=== PATIENT | female | born 1955 | race Caucasian/White ===

== ENCOUNTER 2025-03-26 17:23 | Inpatient (IN) | payer BC, MEDICAID ==
[~2025-03-26] VITALS: Ht 160 cm; Wt 100.7 kg
[2025-03-26 18:33] LABS: BASOPHILS % (AUTO) 0.4 % (0-1); EOSINOPHILS # (AUTO) 0.1 X10'3 (0-0.9); EOSINOPHILS % (AUTO) 0.9 % (0-6); HEMATOCRIT 28.5 % (35.0-45.0); HEMOGLOBIN 9.4 g/dl (12.0-16.0); LYMPHOCYTES # (AUTO) 1.6 X10'3 (1.1-4.8); LYMPHOCYTES % (AUTO) 13.3 % (21-51); MEAN CORPUSCULAR HEMOGLOBIN 25.5 PG (27.0-31.0); MEAN CORPUSCULAR HGB CONC 32.9 g/dL (33.0-36.5); MEAN CORPUSCULAR VOLUME 77.6 FL (78-98); MEAN PLATELET VOLUME 7.1 FL (7.4-10.4); MONOCYTES # (AUTO) 0.7 X10'3 (0-0.9); MONOCYTES % (AUTO) 6.1 % (2-12); NEUTROPHILS # (AUTO) 9.4 X10'3 (1.8-7.7); NEUTROPHILS % (AUTO) 79.3 % (42-75); PLATELET COUNT 410 X10'3 (140-440); RED BLOOD COUNT 3.67 X10'6 (4.20-5.60); RED CELL DISTRIBUTION WIDTH 16.1 % (11.5-14.5); WHITE BLOOD COUNT 11.8 X10'3 (4.5-11.0)
[2025-03-26 18:45] LABS: ALANINE AMINOTRANSFERASE 18 U/L (12-78); ALBUMIN 3.5 G/DL (3.4-5.0); ALKALINE PHOSPHATASE 83 IU/L (46-116); ANION GAP 9 (8-16); ASPARTATE AMINO TRANSFERASE 11 U/L (10-37); BILIRUBIN,TOTAL 0.3 MG/DL (0.1-1.0); BLOOD UREA NITROGEN 11 MG/DL (7-18); BUN/CREATININE RATIO 11.1 (10.0-20.0); CALCIUM 8.7 MG/DL (8.5-10.1); CHLORIDE 89 MMOL/L (99-107); CREATININE 0.99 MG/DL (0.40-0.90); GLUCOSE 92 MG/DL (70-104); POTASSIUM 4.1 MMOL/L (3.5-5.1); SODIUM 127 MMOL/L (135-145); TOTAL CARBON DIOXIDE 28.9 MMOL/L (24-32); TOTAL PROTEIN 7.1 G/DL (6.4-8.2); eCRCL 45 ML/MIN; eGFR 56 ML/MIN
--- NOTE | 2025-03-26 20:12 | Physician Documentation ---
History of Present Illness ~ Chief Complaint: Dizziness Stated Complaint: DIZZINESS Time Seen by MD: 20:03 HPI Patient is seen today with complaints of vertigo for the last couple of days. Patient admits to history of hyponatremia. Patient states she had vertigo two weeks ago also and had a ground level fall and bruised her hip. Patient currently denies any chest pain or shortness of breath or abdominal pain. Patient denies any palpitations and denies any nausea, vomiting, diarrhea. Patient has no other concern or complaint at this time. Medication Reconciliation Allergies: Coded Allergies: Penicillins (Verified Allergy, 04/24/11) Review of Systems Constitutional: Denies: chills, fever, weakness Eyes: Denies: pain, blurred vision ENT: Denies: ear pain, nose pain, throat pain, mouth pain Respiratory: Denies: cough, shortness of breath Cardiovascular: Denies: chest pain, palpitations Gastrointestinal: Denies: abdominal pain, nausea, vomiting Genitourinary: Denies: burning, dysuria Female Genitalia: Denies: vaginal discharge, pelvic pain Neurological: Denies: headache, dizziness Musculoskeletal: Denies: pain, swelling Integumentary: Denies: rash, lesions Allergic/Immunologic: Denies: hives, itching Hematologic/Lymphatic: Denies: no symptoms reported Psychiatric: Denies: depression, anxiety Physical Exam Vital Signs: Temperature: 99.0, Source: Oral, Heart Rate: 88, Respiratory Rate: 16, BP: 158/65, Pulse Oximetry: 96, Weight: 100.700 Oxygen Flow Rate: 0 Physical Exam General: Awake and Alert, no acute distress. HEENT: Conjunctiva pink, Sclera clear, Mucus Membranes moist. Neck: Supple without masses and tenderness. Resp: Unlabored. Lungs clear to auscultation bilaterally. Heart: Regular Rate and rhythm, normal S1 and S2 without murmur, rub or gallop. Abdomen: Soft and non tender no organomegaly Extremities: No cyanosis,clubbing or edema. Skin: Warm and Dry. Progress Results/Orders Results/Orders Orders - GIOVANNI PELAYO PAC Saline Lock (03/26/25 ) Page Hospitalist (03/26/25 21:42) Fill Out Med Reconciliation (03/26/25 21:42) Completed Orders - GIOVANNI PELAYO PAC Normal Saline 1000ml (Sodium Chloride 10 (03/26/25 20:10) Meclizine Tablets (Antivert Tablet) (03/26/25 20:10) BMP (03/26/25 21:40) Medications Received in ER Medications (Trade) Dose Ordered Sig/Mayi Route PRN Reason Start Time Stop Time Status Last Admin Dose Admin Sodium Chloride 1,000 ml @ 1,000 mls/hr ONCE STAT IV 03/26/25 20:10 03/26/25 21:09 DC 03/26/25 20:40 1,000 MLS/HR (Antivert tablet) 25 mg ONCE STAT PO 03/26/25 20:10 03/26/25 20:23 DC 03/26/25 20:30 25 MG Vital Signs 03/26/25 03/26/25 03/26/25 17:29 20:19 20:19 Temp 99.0 Pulse 88 69 Resp 16 13 13 B/P (MAP) 158/65 137/68 (91) Pulse Ox 96 100 O2 Flow Rate 0 0 Laboratory Tests Test 03/26/25 17:55 03/26/25 21:50 White Blood Count 11.8 H Red Blood Count 3.67 L Hemoglobin 9.4 L Hematocrit 28.5 L Mean Corpuscular Volume 77.6 L Mean Corpuscular Hemoglobin 25.5 L Mean Corpuscular Hemoglobin Concent 32.9 L Red Cell Distribution Width 16.1 H Platelet Count 410 Mean Platelet Volume 7.1 L Neutrophils (%) (Auto) 79.3 H Lymphocytes (%) (Auto) 13.3 L Monocytes (%) (Auto) 6.1 Eosinophils (%) (Auto) 0.9 Basophils (%) (Auto) 0.4 Neutrophils # (Auto) 9.4 H Lymphocytes # (Auto) 1.6 Monocytes # (Auto) 0.7 Eosinophils # (Auto) 0.1 Basophils # (Auto) 0.0 CBC Comment Sodium Level 127 L 129 L Potassium Level 4.1 3.9 Chloride Level 89 L 91 L Carbon Dioxide Level 28.9 29.6 Anion Gap 9 8 Blood Urea Nitrogen 11 11 Creatinine 0.99 H 0.93 H Estimated GFR/1.73 m2 56 60 BUN/Creatinine Ratio 11.1 11.8 Glucose Level 92 98 Calcium Level 8.7 7.9 L Total Bilirubin 0.3 Aspartate Amino Transf (AST/SGOT) 11 Alanine Aminotransferase (ALT/SGPT) 18 Alkaline Phosphatase 83 Total Protein 7.1 Albumin 3.5 3.0 L Globulin 3.6 Albumin/Globulin Ratio 1.0 L Chemistry Comments Medical Decision Making Findings Patient is seen today with complaints of vertigo for the last couple of days. Patient admits to history of hyponatremia. Patient states she had vertigo two weeks ago also and had a ground level fall and bruised her hip. Patient currently denies any chest pain or shortness of breath or abdominal pain. Patient denies any palpitations and denies any nausea, vomiting, diarrhea. Patient has no other concern or complaint at this time. Patient's labs did show hyponatremia with sodium at 127. Hospitalist was consulted for further eval and treatment of hyponatremia and dizziness. [facility] [place] Departure Disposition: 09 ADMITTED INPATIENT Admitted to Inpatient Unit: to hospitalist Admission Level of Care: Med/Surg Impression: Primary Impression: Hyponatremia Condition: Stable Additional Instructions: Patient's labs did show hyponatremia with sodium at 127. Hospitalist was consulted for further eval and treatment of hyponatremia and dizziness. Patient will be admitted to the [facility]. Referrals: NO PRIMARY CARE PROVIDER (PCP) Signature Scribe Signature: No scribe Attestation: No scribe GIOVANNI PELAYO March 26, 2025 20:12
[2025-03-26] MEDS: meclizine 12.5mg tablet PO STA (20:30)
[2025-03-26] MEDS: normal saline 1000ml 1,000 ML IV STA (20:40)
[2025-03-26 22:06] LABS: ANION GAP 8 (8-16); BLOOD UREA NITROGEN 11 MG/DL (7-18); BUN/CREATININE RATIO 11.8 (10.0-20.0); CALCIUM 7.9 MG/DL (8.5-10.1); CHLORIDE 91 MMOL/L (99-107); CREATININE 0.93 MG/DL (0.40-0.90); GLUCOSE 98 MG/DL (70-104); POTASSIUM 3.9 MMOL/L (3.5-5.1); SODIUM 129 MMOL/L (135-145); TOTAL CARBON DIOXIDE 29.6 MMOL/L (24-32); eCRCL 48 ML/MIN; eGFR 60 ML/MIN
[2025-03-26] MEDS ORDERED: acetaminophen 325mg tablet PO PRN ×2 (23:10)
[2025-03-26] MEDS ORDERED: potassium Cl 20 mEq SR tablet PO PRN ×2 (23:10)
[2025-03-26] MEDS ORDERED: potassium Cl 40MEQ/1/2NS 520ml 520 ML IV PRN (23:10)
[2025-03-26] MEDS ORDERED: magnesium hydroxide 30ml (MOM) UD suspension PO PRN (23:10)
[2025-03-26] MEDS ORDERED: magnesium sulf-water 4G/100mL 100 ML IV PRN (23:10)
[2025-03-26] MEDS ORDERED: magnesium sulf-water 2g/50mL 50 ML IV PRN (23:10)
[2025-03-26] MEDS ORDERED: mag hydrox/Alum hydrox/simeth 30ml oral suspension PO PRN (23:10)
[2025-03-26] MEDS ORDERED: magnesium Cl slow-release 64mg tablet PO PRN (23:10)
[2025-03-26 23:31] LABS: BILIRUBIN,URINE NEGATIVE (Neg); CLARITY,URINE CLEAR (Clear); COLOR,URINE YELLOW (Yellow); GLUCOSE, URINE 250 mg/dl (Neg); KETONES,URINE NEGATIVE (Neg); LEUKOCYTE ESTERASE ,URINE SMALL (Neg); NITRITES, URINE NEGATIVE (Neg); OCCULT BLOOD,URINE NEGATIVE (Neg); PROTEIN,URINE NEGATIVE (Neg)
[2025-03-26 23:35] LABS: HEMOGLOBIN A1C 5.6 % (4.5-6.2)
--- NOTE | 2025-03-26 23:35 | RADIOLOGY REPORT ---
CHEST RADIOGRAPH Indication: shortness of breath Technique: Single frontal view of the chest was obtained COMPARISON: None FINDINGS: Lines and Tubes: None Lungs: Clear Pleura: No effusion. No pneumothorax. Cardiomediastinal contours: Unremarkable Bones: Unremarkable IMPRESSION: 1. No acute disease.
[2025-03-26 23:39] LABS: UA COLLECTION TYPE URINAL
[2025-03-26] MEDS: PERFLUTREN PROTEIN-A MICROSPHR (Optison) 0.22 MG/ML 3ML VIAL IV ONE (23:39)
[2025-03-26 23:40] LABS: PHOSPHORUS 4.2 MG/DL (2.3-4.5); PRO BRAIN NATRIURETIC PEPTIDE 125 PG/ML (0-125)
[2025-03-26 23:46] LABS: BACTERIA,URINE 4+ /HPF (Neg); RBC,URINE NONE SEEN /HPF (0-2); SQUAMOUS EPITHELIAL CELL,UR FEW /LPF (FEW)
[2025-03-26 23:56] LABS: PROTHROMBIN TIME 10.5 SECONDS (9.0-12.0)
[2025-03-26] MEDS ORDERED: PRED5TAB PO (23:56)
[2025-03-26] MEDS ORDERED: MELO-100 PO (23:56)
[2025-03-26] MEDS ORDERED: SIMV-42 PO (23:56)
[2025-03-26] MEDS ORDERED: BUSP10TA11 PO (23:56)
[2025-03-26] MEDS ORDERED: ZOLP5TAB8 PO (23:56)
[2025-03-26] MEDS ORDERED: FLUT1BLS8 INH (23:56)
[2025-03-26] MEDS ORDERED: LOPE2CAP14 PO (23:56)
[2025-03-26] MEDS ORDERED: LEVO75CA6 PO (23:56)
[2025-03-26] MEDS ORDERED: BENZ-38 PO (23:56)
[2025-03-26] MEDS ORDERED: HYDR25TA5 PO (23:56)
[2025-03-26] MEDS ORDERED: ONDA-245 PO (23:56)
[2025-03-26] MEDS ORDERED: ALB0.5UD NEB (23:56)
[2025-03-26] MEDS ORDERED: TIRZ2.5P (23:56)
[2025-03-26] MEDS ORDERED: INSU100I5 SQ (23:56)
[2025-03-26] MEDS ORDERED: BRIM5DRO6 EACHEYE (23:56)
[2025-03-26] MEDS ORDERED: ONDA-243 PO (23:56)
[2025-03-26] MEDS ORDERED: PANT20TA18 PO (23:56)
[2025-03-26] MEDS ORDERED: GABA-530 PO (23:56)
[2025-03-26] MEDS ORDERED: METH-798 PO (23:56)
[2025-03-26] MEDS ORDERED: LEVO-65 PO (23:56)
[2025-03-26] MEDS ORDERED: HYDR-3965 PO (23:56)
[2025-03-26] MEDS ORDERED: CETI10TA14 PO (23:56)
[2025-03-26] MEDS ORDERED: EMPA25TA PO (23:56)
[2025-03-26] MEDS ORDERED: AMLO5TAB PO (23:56)
[2025-03-26] MEDS ORDERED: DIVA-76 PO (23:56)
[2025-03-27] VITALS (8 sets, daily range): BP systolic 122–175; BP diastolic 43–77; PULSE 64–81; RESP 15–19; TEMP 96.8–97.9; O2SAT 95–99
--- NOTE | 2025-03-27 02:55 | HISTORY AND PHYSICAL-Residence ---
History & Physical Providers to CC Resident Creating Document: YADIRA BRAN, RES ~ History of Present Illness Reason for Admit\Complaint: Hyponatremia History of Present Illness The patient is a 69-year-old female with past medical history of renal artery stenosis, COPD, asthma, hypertension, hypothyroidism, presented to the ED after she was asked by her family service worker in [place]. The patient visited her family service worker on Saturday, underwent labs and got results today. They were concerned about her low sodium and hemoglobin which is why she presented to the ER. The patient complains of dizziness and nausea since last two days. She has also been vomiting multiple times. Denies fevers, shortness of breath, chest pain, tightness, palpitations, abdominal pain, constipation, diarrhea, burning micturition. She has been using Mounjaro every week since last four weeks and she lost about 7 lb of weight. She reported that she has a history of falling. No prodromes. Patient uses BiPAP at night for COPD. Allergies: Coded Allergies: Penicillins (Verified Allergy, 04/24/11) Home Medications Home Medications Active Reported Ambien* (Zolpidem Tartrate) 5 Mg Tablet 1 Tab PO HSPRN PRN 30 Days Zocor* (Simvastatin) 20 Mg Tablet 2 Tab PO HS Prednisone* (Prednisone) 5 Mg Tablet 4 Tab PO DAILY Protonix (Pantoprazole Sodium) 20 Mg Tablet.dr 1 Tab PO DAILY 30 Days Ondansetron Odt (Ondansetron HCl) 8 Mg Tab.rapdis 1 Tab PO Q8H 2 Days Ondansetron Odt (Ondansetron HCl) 4 Mg Tab.rapdis 1 Tab PO Q6H PRN PRN 4 Days Methocarbamol 750 Mg Tablet 1 Tab PO Q8H 30 Days Meloxicam* (Meloxicam) 7.5 Mg Tablet 1 Tab PO DAILY 30 Days Levothyroxine (Levothyroxine Sodium) 75 Mcg Capsule 1 Tab PO DAILY 30 Days Levofloxacin 500 Mg Tablet 1 Tab PO DAILY 10 Days Jardiance (Empagliflozin) 25 Mg Tablet 1 Tab PO DAILY 30 Days [place] 5/325 MG (Acetaminophen/Hydrocodone Bitart) 5 Mg/325 Mg Tablet 1 Tab PO Q8H PRN Hydrochlorothiazide 25 Mg Tab 1 Tab PO DAILY 30 Days Humalog Mix 75-25 Kwikpen (Insulin Npl/Insulin Lispro) 100 Unit/Ml (75-25) Insuln.pen 1 Units SQ Gabapentin 100 Mg Capsule 3 Cap PO Q8H 30 Days Advair 500-50 Diskus* (Salmeterol Xinafoate/Fluticasone) 500 Mcg-50 Mcg/Dose Disk.w.dev 1 Puffs INH Q12H [address]* (Divalproex Sodium) 500 Mg Tablet.dr 1 Tab PO Q12H 30 Days Cetirizine HCl 10 Mg Tablet 1 Tab PO DAILY 30 Days Alphagan* (Brimonidine Tartrate) 5 Ml Bottle 1 Drop EACHEYE TID Buspar* (Buspirone HCl) 10 Mg Tablet 1 Tab PO BID Benzonatate* (Benzonatate) 100 Mg Capsule 2 Cap PO TID 5 Days Anti-Diarrheal (Loperamide HCl) 2 Mg Capsule 1 Cap PO Q8H 5 Days Amlodipine Besylate 5 Mg Tablet 1 Tablet PO DAILY Proventil Neb* (Albuterol) 2.5 Mg/0.5 Ml Vial.neb 1 Vial NEB Q6H 30 Days Past Medical History Past Medical History Diabetes mellitus, as reported by the patient COPD Asthma Hypertension Hypothyroidism CKD stage 4, as reported by the patient History of renal artery stenosis Past Surgical History Surgical History Comment Tonsillectomy Ganglion cyst removal Family history: Father-bladder cancer, [place] Mother emphysema Past Social History Social History Comment The patient lives in [place] at home with her boyfriend. Ambulates independently without assistance. Her primary care physician is Dr. Benson in [place]. Patient sees Dr. Ward, family service worker for anemia. Patient had history of renal artery stenosis and CKD and she was seeing Dr. Huang but stopped following. Last seen three years ago. 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 Patient quit smoking 42 years ago. Denies alcohol and illicit drug abuse. ROS ROS Reviewed in full. Negative except for pertinent positives in HPI. Constitutional: Denies: chills, fever, weakness Eyes: Denies: pain, blurred vision ENT: Denies: ear pain, nose pain, throat pain, mouth pain Respiratory: Denies: cough, shortness of breath Cardiovascular: Denies: chest pain, palpitations Gastrointestinal: Denies: abdominal pain, nausea, vomiting Genitourinary: Denies: burning, dysuria Neurological: Denies: headache, dizziness Musculoskeletal: Denies: pain, swelling Integumentary: Denies: rash, lesions Allergic/Immunologic: Denies: hives, itching Hematologic/Lymphatic: Denies: no symptoms reported Psychiatric: Denies: depression, anxiety Exam Vitals: Vital Signs Date Time Temp Pulse Resp B/P (MAP) Pulse Ox O2 Delivery O2 Flow Rate FiO2 03/27/25 01:30 66 03/27/25 01:15 97.8 16 142/49 (80) 95 Room Air 03/26/25 23:40 0 General: Elderly female, alert and oriented, not in acute distress Head: Normocephalic with an atraumatic Eyes: Pupils- 3mm, reacting to light, conjunctiva- anicteric Nose and throat: No polyps, septum- normal, no mucosal ulcers Neck: Supple, no lymphadenopathy, no carotid bruit Respiratory: No use of accessory muscles of respiration, Bilateral normal vesiscular breath sounds heard. No wheeze, rhochi or creps Cardiac: S1-S2 heard, rhythm regular Abdomen: non distended, lower abdominal tenderness present, no organomegaly, bowel sounds - heard Extremities: no clubbing, no pedal edema, no deformities, peripheral pulses - 2+ Skin: warm and dry, no rash, no purpura Neuro: No focal deficit, gross cranial nerve exam - normal Diagnostic Data Last Recorded Lab Results: 03/26/25175403/26/[id number] Diagnostic Data: Laboratory Tests Test 03/26/25 23:19 Prothrombin Time 10.5 SECONDS (9.0-12.0) INR International Normalized Ratio 1.0 INR Coagulation Comments Advance Care Planning Advanced Care plannin - 30 Minutes Additional Plan A 69-year-old female with past medical history of hypertension, COPD, asthma, hypothyroidism, presented to the ED with low sodium and hemoglobin levels. She is being admitted to the hospital for further evaluation and management. Plan: Hyponatremia Likely from medications vs GI losses Improving sodium from 127-129. Normal saline 1 L given in the ER. Continue NS at 100 mL/hour. Follow up with urine osmolality, serum osmolality, urine lytes. Hold hydrochlorothiazide. Ondansetron 4 mg q.6 H p.r.n. for vomiting and nausea. Urinary tract infection Urinalysis positive for leukocyte esterase. Follow up with urine cultures. Started the patient on IV Rocephin 1 g daily. Diabetes mellitus HB A1c 5.6. Consider stopping her home insulin. COPD Asthma Continue home inhalers after med rec is done. Hypertension Continue home amlodipine. Hypothyroidism Continue home levothyroxine 75 mcg daily. History of CKD History of renal artery stenosis Patient does not seem to be in kidney failure currently. Continue IV fluids. Hyperlipidemia Continue home statins. Code Status: Full code DVT Prophylaxis: Heparin Analgesia/Sedation: Tylenol Lines/Tubes: PIV Nutrition: Heart healthy diet PT: Ordered Disposition: We will admit the patient into [facility]. Continue sodium monitoring every 4 hours. Yadira Bran MD Internal Medicine Resident PGY-1 I saw and discussed this patient with the resident team and agree with plan of care as documented Date of Service: March 27, 2025 Billing Provider: LEV FLORES MD, SOWMYA MANJARI, RES March 27, 2025 02:54 LEV FLORES MD March 27, 2025 07:58
[2025-03-27] MEDS: CefTRIAXone/D5W-Rocephin 1gm 50 ML IV ONE (03:27)
[2025-03-27] MEDS: normal saline 1000ml 1,000 ML IV SCH (03:28)
[2025-03-27 05:21] LABS: SODIUM,URINE RANDOM 72 MEQ/L; TOTAL PROTEIN,URINE RANDOM < 6.0 MG/DL
[2025-03-27 05:26] LABS: OSMOLALITY UA 242 MOSM/K (50-1400)
[2025-03-27 06:12] LABS: BASOPHILS % (AUTO) 0.6 % (0-1); EOSINOPHILS # (AUTO) 0.1 X10'3 (0-0.9); EOSINOPHILS % (AUTO) 1.8 % (0-6); HEMATOCRIT 25.1 % (35.0-45.0); HEMOGLOBIN 8.6 g/dl (12.0-16.0); LYMPHOCYTES # (AUTO) 1.6 X10'3 (1.1-4.8); LYMPHOCYTES % (AUTO) 19.6 % (21-51); MEAN CORPUSCULAR HEMOGLOBIN 26.6 PG (27.0-31.0); MEAN CORPUSCULAR HGB CONC 34.1 g/dL (33.0-36.5); MEAN CORPUSCULAR VOLUME 77.9 FL (78-98); MEAN PLATELET VOLUME 7.1 FL (7.4-10.4); MONOCYTES # (AUTO) 0.6 X10'3 (0-0.9); MONOCYTES % (AUTO) 7.5 % (2-12); NEUTROPHILS # (AUTO) 5.9 X10'3 (1.8-7.7); NEUTROPHILS % (AUTO) 70.5 % (42-75); PLATELET COUNT 312 X10'3 (140-440); RED BLOOD COUNT 3.22 X10'6 (4.20-5.60); RED CELL DISTRIBUTION WIDTH 16.3 % (11.5-14.5); WHITE BLOOD COUNT 8.3 X10'3 (4.5-11.0)
[2025-03-27 06:57] LABS: ALANINE AMINOTRANSFERASE 15 U/L (12-78); ALBUMIN 2.9 G/DL (3.4-5.0); ALBUMIN/GLOBULIN RATIO 0.9 (1.1-1.5); ALKALINE PHOSPHATASE 73 IU/L (46-116); ANION GAP 9 (8-16); ASPARTATE AMINO TRANSFERASE 13 U/L (10-37); BILIRUBIN,TOTAL 0.1 MG/DL (0.1-1.0); BLOOD UREA NITROGEN 9 MG/DL (7-18); BUN/CREATININE RATIO 10.8 (10.0-20.0); CHLORIDE 92 MMOL/L (99-107); CHOL/HDL RATIO 2.6 (0.00-4.99); CHOLESTEROL 126 MG/DL (0-200); CREATININE 0.83 MG/DL (0.40-0.90); FERRITIN 29 NG/ML (8-252); GLUCOSE 87 MG/DL (70-104); HDL CHOLESTEROL 48 MG/DL (35-60); LDL CHOLESTEROL 63 MG/DL (50-100); MAGNESIUM 1.7 MG/DL (1.5-2.4); POTASSIUM 3.7 MMOL/L (3.5-5.1); SODIUM 130 MMOL/L (135-145); TOTAL CARBON DIOXIDE 29.1 MMOL/L (24-32); TOTAL PROTEIN 6.1 G/DL (6.4-8.2); TRIGLYCERIDES 101 MG/DL (20-135); eCRCL 54 ML/MIN; eGFR 68 ML/MIN
[2025-03-27] MEDS: K and/or MAG REPLACEMENT MC SCH (07:38)
[2025-03-27] MEDS: heparin, porcine 5000 units/ml vial SQ SCH (09:00)
[2025-03-27] MEDS: nystatin 15 GM powder TP SCH (16:40)
[2025-03-27] MEDS: Melatonin 3mg tablet PO PRN (19:59)
[2025-03-27] MEDS: HYDROcodone/acetaminophen 10/325mg tab PO ONE (19:59)
[2025-03-27] MEDS ORDERED: zolpidem 5mg tablet PO PRN (20:40)
--- NOTE | 2025-03-27 20:50 | PROGRESS NOTE ---
Daily Progress Note Providers to CC ~ Antibiotic Timeout Antibiotic Ordered?: Yes Subjective The patient denies dizziness currently- and is awaiting for physical therapy evaluation. Orthostatic vital signs were negative the patient has no acute complaints currently Objective Vital Signs Date Time Temp Pulse Resp B/P (MAP) Pulse Ox O2 Delivery O2 Flow Rate FiO2 03/27/25 18:30 79 03/27/25 18:00 97.7 16 143/77 (99) 98 Room Air 03/26/25 23:40 0 Result Diagram: 03/27/25 0533 03/27/25 1950 Gen. No acute distress alert and oriented 4 Lungs clear to ascultation bilaterally, no wheezes rales or rhonchi appreciated Heart normal sinus rhythm no murmurs rubs or clicks noted Abdomen soft nontender bowel sounds are normoactive Lower extremities no clubbing cyanosis, nor edema appreciated bilaterally Coagulation Studies Laboratory Tests Test 03/26/25 23:19 Prothrombin Time 10.5 SECONDS (9.0-12.0) INR International Normalized Ratio 1.0 INR Coagulation Comments Problem\Assessment\Plan Problems/Diagnosis: (1) Hyponatremia # hyponatremia- Improving with IV fluid resuscitation continue to monitor Stop hydrochlorothiazide # UTI- Urine culture pending Continue IV Rocephin # diabetes mellitus Hemoglobin A1c is 5.6 Hold insulin for now and a hyper and hypoglycemic protocol # hypertension under acceptable control Continue amlodipine # hypothyroidism Continue levothyroxine # chronic kidney disease- Current renal function is normal Monitor daily CMP # microcytic anemia- Daily CBC is ordered Iron studies # DVT prophylaxis SQ heparin Date of Service: March 27, 2025 Billing Provider: LAKISHA AGUDELO DO Common Visit Codes: [id number] INP/OBS CARE(HIGH) LAKISHA AGUDELO DO March 27, 2025 20:50
[2025-03-27] MEDS: brimonidine 0.2% 5 ML ophthalmic drops EACHEYE SCH (21:00)
[2025-03-27] MEDS: simvastatin 20mg tablet PO SCH (22:37)
[2025-03-28] MEDS: gabapentin 100mg capsule PO SCH (00:28)
[2025-03-28 01:19] LABS: BASOPHILS % (AUTO) 0.6 % (0-1); EOSINOPHILS # (AUTO) 0.1 X10'3 (0-0.9); EOSINOPHILS % (AUTO) 1.7 % (0-6); HEMATOCRIT 25.4 % (35.0-45.0); HEMOGLOBIN 8.6 g/dl (12.0-16.0); LYMPHOCYTES # (AUTO) 1.3 X10'3 (1.1-4.8); LYMPHOCYTES % (AUTO) 16.4 % (21-51); MEAN CORPUSCULAR HEMOGLOBIN 26.7 PG (27.0-31.0); MEAN CORPUSCULAR VOLUME 78.8 FL (78-98); MEAN PLATELET VOLUME 6.8 FL (7.4-10.4); MONOCYTES # (AUTO) 0.5 X10'3 (0-0.9); NEUTROPHILS % (AUTO) 75.3 % (42-75); PLATELET COUNT 294 X10'3 (140-440); RED BLOOD COUNT 3.22 X10'6 (4.20-5.60); RED CELL DISTRIBUTION WIDTH 16.2 % (11.5-14.5)
[2025-03-28 01:32] LABS: ALANINE AMINOTRANSFERASE 17 U/L (12-78); ALBUMIN 2.9 G/DL (3.4-5.0); ALBUMIN/GLOBULIN RATIO 0.9 (1.1-1.5); ALKALINE PHOSPHATASE 71 IU/L (46-116); ANION GAP 7 (8-16); ASPARTATE AMINO TRANSFERASE 17 U/L (10-37); BILIRUBIN,TOTAL 0.2 MG/DL (0.1-1.0); BLOOD UREA NITROGEN 11 MG/DL (7-18); CHLORIDE 97 MMOL/L (99-107); CREATININE 0.92 MG/DL (0.40-0.90); GLUCOSE 100 MG/DL (70-104); MAGNESIUM 1.8 MG/DL (1.5-2.4); SODIUM 131 MMOL/L (135-145); TOTAL CARBON DIOXIDE 27.1 MMOL/L (24-32); TOTAL PROTEIN 6.1 G/DL (6.4-8.2); eCRCL 48 ML/MIN; eGFR 61 ML/MIN
[2025-03-28 02:32] LABS: % IRON SATURATION 7 % (11-46); IRON 22 UG/DL (49-151); TOTAL IRON BINDING CAPACITY 335 UG/DL (259-388)
[2025-03-28] MEDS: ondansetron/PF 4mg/2ml inj IV PRN (02:32)
[2025-03-28 05:00] VITALS: BP 137/64; PULSE 66; RESP 16; TEMP 97.2; O2SAT 97
[2025-03-28] MEDS: levoTHYROXINE 75mcg tablet PO SCH (07:00)
[2025-03-28 08:00] VITALS: BP_SYST 137; BP_SYST 146; BP_SYST 165; BP_DIAS 67; BP_DIAS 69; BP_DIAS 81; PULSE 66; PULSE 70; PULSE 76; RESP 16; O2SAT 95
[2025-03-28] MEDS ORDERED: LEVOTHYROXINE SODIUM PO SCH (08:00)
[2025-03-28] MEDS ORDERED: non-formulary drug (Amlodipine Besylate 1 TABLET) PO SCH (08:00)
[2025-03-28] MEDS ORDERED: non-formulary drug (Buspirone Hcl* (Buspar*) 1 TAB) PO SCH (08:00)
[2025-03-28] MEDS: divalproex sodium 500mg tablet.DR PO SCH (08:40)
[2025-03-28] MEDS: EMPAGLIFLOZIN 25 MG TABLET PO SCH (08:40)
[2025-03-28] MEDS: cetirizine 10mg tablet PO SCH (08:40)
[2025-03-28] MEDS: amLODIPine 5mg tablet PO SCH (08:40)
[2025-03-28] MEDS: busPIRone 5mg tablet PO SCH (08:40)
[2025-03-28] MEDS: CefTRIAXone/D5W-Rocephin 1gm 50 ML IV SCH (08:40)
[2025-03-28] MEDS: iron sucrose complex injection 300 MG in normal saline 250ml IV soln 250 ML IV SCH (09:30)
[2025-03-28] MEDS: fludrocortisone acetate 0.1mg tablet PO SCH (09:31)
[2025-03-28 10:00] VITALS: BP 149/59; PULSE 77; RESP 16; TEMP 98; O2SAT 95
[2025-03-28] MEDS: HYDROcodone/acetaminophen 5mg/325mg tablet PO PRN (11:55)
--- NOTE | 2025-03-28 14:30 | CARDIOLOGY REPORT ---
APPROVED REPORT EXAM: Comprehensive 2D, Doppler, and color-flow Echocardiogram. Patient Location: [address] Blood Pressure: 140/66 mmHg Heart Rate: 68 bpm Rhythm: Sinus Rhythm Indications Murmur Dizziness/Vertigo Hyponatremia Line Decorator: Patient could not remember Line Decorator's name Previous echo: 04/25/2011 [facility] EF: 65% 2D Dimensions RVDd 3.9 cm LA Diam3.8 cm RA Minor4.6 cmLVOT Diameter 2.05 (1.8-2.4cm) Ao Asc Diam.3.47 cmIVC 21.83 mm CO 6.4 L/min M-Mode Dimensions RVDd 3.30 (2.1-3.2cm) IVSd 1.17 (0.7-1.1cm) LVDd 5.49 (4.0-5.6cm) Aortic Root 3.62 (2.2-3.7cm) PWd 1.21 (0.7-1.1cm) Aortic Cusp Exc 2.11 (1.5-2.0cm) IVSs 1.87 cm MV EPSS 0.7 (<0.5cm) LVDs 3.66 (2.0-3.8cm) FS (%) 36 % PWs 1.44 cm ESV(Teich) 50.8 ml LVEF(%) 65 (>50%) Biplane 2D LA Volumes LA ESV A4C 34.20 mL/m2 Aortic Valve AoV Peak Garcia. 166.7 cm/s AoV VTI 38.3 cm AO Peak GR. 11.1 mmHg AO Mean GR. 6 mmHg LVOT VTI 25.25 cm LVOT Peak Garcia. 115.7 cm/s SON(VTI)/BSA 2.18 cm2/m2 SON (VTI) 2.18 cm2 AI P 1/2 Time 556 ms Mitral Valve MV E Velocity 83.1 cm/s MV Peak Gr. 3 mmHg MV DECEL TIME 212 ms MV A Velocity 86.4 cm/s MV PHT 72 ms E/A Ratio 1.0 MVA (PHT) 3.06 cm2 MV VMax89.5 cm/s TDI Medial E' P. V 14.23 cm/s E/Medial E' 5.8 Pulmonary Valve RVOT VTI 27.6 cm Tricuspid Valve TR P. Velocity 209 cm/s RAP ESTIMATE 15 mmHg TR Peak Gr. 18 mmHg RVSP 33 mmHg Pulmonary Vein S1 Velocity 58.0 cm/s D2 Velocity 42.5 cm/s PVa Rcflxesy41.2 cm/s PVa [id number] msec LEFT VENTRICLE Normal LV size and function. Mild concentric hypertrophy. Overall LVEF is 65%. RIGHT VENTRICLE Right ventricle is moderately dilated with grossly normal function. Estimated PA systolic pressure is 33 mmHg. ATRIA The left atrium size is normal. Right atrium appears to be moderately dilated. AORTIC VALVE Trileaflet AV appears sclerotic without stenosis. Mild insufficiency. MITRAL VALVE Mild MV annular calcification without stenosis. Trace regurgitation. TRICUSPID VALVE TV appears structurally normal with trace to mild regurgitation. PULMONIC VALVE Normal PV without stenosis, mild physiologic insufficiency. GREAT VESSELS The aortic root is normal in size. The ascending aorta is normal in size. IVC is dilated and collapse s less than 50% with inspiration. PERICARDIUM Trace pericardial effusion without hemodynamic compromise. Prominent epicardial fat pad is present. Other Information Study Quality: Adequate Conclusion Overall LVEF is 65%. Normal LV size and function. Mild concentric hypertrophy. Right ventricle is moderately dilated with grossly normal function. Estimated PA systolic pressure is 33 mmHg. Trileaflet AV appears sclerotic without stenosis. Mild insufficiency. Mild MV annular calcification without stenosis. Trace regurgitation. TV appears structurally normal with trace to mild regurgitation. Normal PV without stenosis, mild physiologic insufficiency. Trace pericardial effusion without hemodynamic compromise. Prominent epicardial fat pad is present.
[2025-03-28 18:00] VITALS: BP 126/63; PULSE 67; RESP 13; TEMP 98.7; O2SAT 93
--- NOTE | 2025-03-28 18:55 | PROGRESS NOTE ---
Daily Progress Note Providers to CC ~ Antibiotic Timeout Antibiotic Ordered?: Yes Subjective The patient had one episode of dizziness today- last evening she had positive orthostatic vital signs with a 24 point drop in systolic blood pressure from sitting to standing the opposite occurred this morning when her orthostatic vital signs were obtained where her systolic blood pressure went up with sitting to standing. Did start the patient's morning on Florinef the patient is also has iron-deficiency with a serum iron level of 22 TIBC normal at 335 and 7% saturation Objective Vital Signs Date Time Temp Pulse Resp B/P (MAP) Pulse Ox O2 Delivery O2 Flow Rate FiO2 03/28/25 11:55 16 03/28/25 10:00 98.0 77 149/59 (89) 95 Room Air 03/27/25 20:00 0.0 Result Diagram: 03/28/2510703/28/25107 Gen. No acute distress alert and oriented 4 Lungs clear to ascultation bilaterally, no wheezes rales or rhonchi appreciated Heart normal sinus rhythm no murmurs rubs or clicks noted Abdomen soft nontender bowel sounds are normoactive Lower extremities no clubbing cyanosis, nor edema appreciated bilaterally Coagulation Studies Laboratory Tests Test 03/26/25 23:19 Prothrombin Time 10.5 SECONDS (9.0-12.0) INR International Normalized Ratio 1.0 INR Coagulation Comments Problem\Assessment\Plan Problems/Diagnosis: (1) Hyponatremia # hyponatremia- Improving with IV fluid resuscitation continue to monitor Stop hydrochlorothiazide Serum sodium remained stable at 130. # orthostatic hypotension- With a 24 point drop in systolic wedge pressure from sitting to standing Florinef started # UTI- Urine culture positive for Gram-negative rods and Gram-positive cocci- awaiting identification and sensitivities Continue IV Rocephin # diabetes mellitus Hemoglobin A1c is 5.6 Hold insulin for now and a hyper and hypoglycemic protocol # hypertension under acceptable control Continue amlodipine # hypothyroidism Continue levothyroxine # chronic kidney disease- Current renal function is normal Monitor daily CMP # iron-deficiency anemia Daily CBC is ordered IV Venofer # DVT prophylaxis SQ heparin Date of Service: March 28, 2025 Billing Provider: LAKISHA AGUDELO DO Common Visit Codes: [id number] INP/OBS CARE(HIGH) LAKISHA AGUDELO DO March 28, 2025 18:55
[2025-03-28 20:00] VITALS: BP_SYST 142; BP_SYST 148; BP_SYST 157; BP_DIAS 52; BP_DIAS 57; BP_DIAS 74; PULSE 78; PULSE 79; PULSE 80; RESP 15; O2SAT 93
[2025-03-28 22:00] VITALS: BP 142/52; PULSE 80; RESP 18; TEMP 98; O2SAT 95
[2025-03-29 05:00] VITALS: BP 124/57; PULSE 65; RESP 16; TEMP 97.2; O2SAT 96
[2025-03-29 06:03] LABS: BASOPHILS % (AUTO) 0.6 % (0-1); EOSINOPHILS # (AUTO) 0.1 X10'3 (0-0.9); EOSINOPHILS % (AUTO) 1.9 % (0-6); HEMATOCRIT 27.2 % (35.0-45.0); HEMOGLOBIN 8.8 g/dl (12.0-16.0); LYMPHOCYTES # (AUTO) 1.4 X10'3 (1.1-4.8); LYMPHOCYTES % (AUTO) 21.2 % (21-51); MEAN CORPUSCULAR HEMOGLOBIN 25.7 PG (27.0-31.0); MEAN CORPUSCULAR HGB CONC 32.3 g/dL (33.0-36.5); MEAN CORPUSCULAR VOLUME 79.5 FL (78-98); MEAN PLATELET VOLUME 7.1 FL (7.4-10.4); MONOCYTES # (AUTO) 0.5 X10'3 (0-0.9); MONOCYTES % (AUTO) 7.4 % (2-12); NEUTROPHILS # (AUTO) 4.6 X10'3 (1.8-7.7); NEUTROPHILS % (AUTO) 68.9 % (42-75); PLATELET COUNT 298 X10'3 (140-440); RED BLOOD COUNT 3.42 X10'6 (4.20-5.60); RED CELL DISTRIBUTION WIDTH 16.4 % (11.5-14.5); WHITE BLOOD COUNT 6.6 X10'3 (4.5-11.0)
[2025-03-29 06:23] LABS: ALANINE AMINOTRANSFERASE 16 U/L (12-78); ALBUMIN 2.7 G/DL (3.4-5.0); ALBUMIN/GLOBULIN RATIO 0.8 (1.1-1.5); ALKALINE PHOSPHATASE 65 IU/L (46-116); ANION GAP 7 (8-16); ASPARTATE AMINO TRANSFERASE 17 U/L (10-37); BILIRUBIN,TOTAL 0.1 MG/DL (0.1-1.0); BLOOD UREA NITROGEN 10 MG/DL (7-18); BUN/CREATININE RATIO 12.5 (10.0-20.0); CALCIUM 8.2 MG/DL (8.5-10.1); CHLORIDE 102 MMOL/L (99-107); GLUCOSE 81 MG/DL (70-104); MAGNESIUM 1.8 MG/DL (1.5-2.4); SODIUM 138 MMOL/L (135-145); TOTAL PROTEIN 5.9 G/DL (6.4-8.2); eCRCL 56 ML/MIN; eGFR 71 ML/MIN
[2025-03-29 08:00] VITALS: BP_SYST 133; BP_SYST 142; BP_SYST 143; BP_DIAS 58; BP_DIAS 61; BP_DIAS 67; PULSE 63; PULSE 69; PULSE 75
[2025-03-29 10:00] VITALS: BP 133/61; PULSE 63; RESP 17; TEMP 98; O2SAT 95
[2025-03-29] MEDS ORDERED: CEPH500C2 PO (11:06)
--- NOTE | 2025-03-29 18:12 | DISCHARGE SUMMARY ---
Discharge Summary Providers to CC ~ Discharge Summary Admission Diagnosis: Hyponatremia Hospital Course DATE OF ADMISSION: 03/26/2025 DATE OF DISCHARGE: 03/29/2025 Discharge Diagnosis\\Comment: Hyponatremia, E coli UTI, [id number] diabetes mellitus, hypertension, hypothyroidism, chronic kidney disease, iron-deficiency anemia Operations\\Procedures: None Consultants: None Complications: None Condition on DC: Stable New Medications: Cephalexin Monohydrate (Cephalexin) 500 Mg Capsule 1 CAP PO Q8H, #12 CAP Continued Medications: Albuterol Sulfate* (Proventil Neb*) 2.5 Mg/0.5 Ml Vial.neb 1 VIAL NEB Q6H for shortness of breath for 30 Days, #60 ML Amlodipine Besylate (Amlodipine Besylate) 5 Mg Tablet 1 TABLET PO DAILY, #30 TABLET 5 Refills Benzonatate* (Benzonatate*) 100 Mg Capsule 2 CAP PO TID for cough for 5 Days, #60 CAP Brimonidine Tartrate* (Alphagan*) 5 Ml Bottle 1 DROP EACHEYE TID, EACH Buspirone Hcl* (Buspar*) 10 Mg Tablet 1 TAB PO BID, TAB Cetirizine HCl (Cetirizine HCl) 10 Mg Tablet 1 TAB PO DAILY for allergy symptoms for 30 Days, #30 TAB [address]* (Depakote DR*) 500 Mg Tablet.dr 1 TAB PO Q12H for 30 Days, #60 TAB Empagliflozin (Jardiance) 25 Mg Tablet 1 TAB PO DAILY for 30 Days, #30 TAB 0 Refills Fluticasone/Salmeterol* (Advair 500-50 Diskus*) 500 Mcg-50 Mcg/Dose Disk.w.dev 1 PUFFS INH Q12H for 30 Days, #1 EA 0 Refills Gabapentin (Gabapentin) 100 Mg Capsule 3 CAP PO Q8H for 30 Days, #90 CAP 0 Refills Hydrocodone Bit/Acetaminophen 5/325 MG ([place] 5/325 MG) 5 Mg/325 Mg Tablet 1 TAB PO Q8H PRN for moderate or severe pain, TAB Insulin Npl/Insulin Lispro (Humalog Mix 75-25 Kwikpen) 100 Unit/Ml (75-25) Insuln.pen 1 UNITS SQ, UNIT Levothyroxine Sodium (Levothyroxine) 75 Mcg Capsule 1 TAB PO DAILY for 30 Days, #30 CAP 0 Refills Loperamide HCl (Anti-Diarrheal) 2 Mg Capsule 1 CAP PO Q8H for 5 Days, #15 CAP 0 Refills Meloxicam* (Meloxicam*) 7.5 Mg Tablet 1 TAB PO DAILY for 30 Days, #30 TAB 0 Refills Methocarbamol (Methocarbamol) 750 Mg Tablet 1 TAB PO Q8H for 30 Days, #90 TAB 0 Refills Ondansetron 8mg ODT (Ondansetron Odt) 8 Mg Tab.rapdis 1 TAB PO Q8H for nausea/vomiting for 2 Days, #6 TAB 0 Refills ONDANSETRON ODT 4mg tablet (Ondansetron Odt) 4 Mg Tab.rapdis 1 TAB PO Q6H PRN PRN for nausea/vomiting for 4 Days, #16 TAB 0 Refills Pantoprazole Sodium (Protonix) 20 Mg Tablet.dr 1 TAB PO DAILY for 30 Days, #30 TAB 0 Refills Prednisone* (Prednisone*) 5 Mg Tablet 4 TAB PO DAILY, TAB Simvastatin* (Zocor*) 20 Mg Tablet 2 TAB PO HS, TAB Zolpidem Tartrate* (Ambien*) 5 Mg Tablet 1 TAB PO HSPRN PRN for sleep for 30 Days, #30 TAB Discontinued Medications: Levofloxacin (Levofloxacin) 500 Mg Tablet 1 TAB PO DAILY for 10 Days, #10 TAB Discharge Summary: The [facility] of LEV Sosa MD with the following HPI:"The patient is a 69-year-old female with past medical history of renal artery stenosis, C OPD, asthma, hypertension, hypothyroidism, presented to the ED after she was asked by her senior instrumentation engineer in [place]. The patient visited her senior instrumentation engineer on Saturday, underwent labs and got results today. They were concerned about her low sodium and hemoglobin which is why she presented to the ER. The patient complains of dizziness and nausea since last two days. She has also been vomiting multiple times. Denies fevers, shortness of breath, chest pain, tightness, palpitations, abdominal pain, constipation, diarrhea, burning micturition. She has been using Mounjaro every week since last four weeks and she lost about 7 lb of weight. She reported that she has a history of falling. No prodromes. Patient uses BiPAP at night for COPD." The patient had one episode of dizziness during hospitalization and had one set of positive orthostatic vitals with a 24 point drop in systolic blood pressure from sitting to standing the the evening of the however all other orthostatic vital signs the patient's blood pressure increased with positional changes from supine to sitting and sitting to standing. The patient is a diabetic however her blood sugars were controlled without any diabetic treatments other than Jardiance. The patient has iron-deficiency anemia she says she takes a iron drink daily and does not take vitamin-C her serum iron level was 22 TIBC was normal at 335 and t hen% saturation was seven the patient received a dose of IV Venofer and I recommended the patient take p.o. iron twice a day along with vitamin-C for better absorption. The patient had hyponatremia on admission serum sodium was 127 this normalized by the day discharge was 138. The patient has a hypertension and her blood pressure was under acceptable control the entire hospitalization she remains on amlodipine. The patient has a UTI that grew out E coli that was pansensitive with the patient received IV Rocephin during hospitalization and discharged on a four day course of p.o. Keflex. Gen. No acute distress alert and oriented 4 Lungs clear to ascultation bilaterally, no wheezes rales or rhonchi appreciated Heart normal sinus rhythm no murmurs rubs or clicks noted Abdomen soft nontender bowel sounds are normoactive Lower extremities no clubbing cyanosis, nor edema appreciated bilaterally The patient felt ready to be discharged and was medically cleared to be discharged on 02/27/2025 The patient was seen and evaluated on day of discharge. Time spent on discharge 35 minutes *Problems/Diagnosis: (1) Hyponatremia Status: Acute Total Time Spent on D/C: > 30 Minutes Date of Service: March 29, 2025 Billing Provider: LAKISHA AGUDELO DO Common Visit Codes: [id number] INP/OBS CARE(HIGH) LAKISHA AGUDELO DO March 29, 2025 18:12
== END 2025-03-29 13:55 | disposition home health service (06) | DRG 641 ==
LOC: ER 17:24 → ED HOLD 23:12 → ORTHO 4S 03-27 01:10
PROVIDERS: ADMIT Internal Medicine; ATTEND Family Medicine
PROC: 05HF33Z Insertion of Infusion Device into Left Cephalic Vein, Percutaneous Approach (ICD-10-PCS; principal; 2025-03-29)
PROC: B54NZZA Ultrasonography of Left Upper Extremity Veins, Guidance (ICD-10-PCS; 2025-03-29)
DX: E87.1 Hypo-osmolality and hyponatremia (principal); N39.0 Urinary tract infection, site not specified; D50.9 Iron deficiency anemia, unspecified; N18.9 Chronic kidney disease, unspecified; E78.5 Hyperlipidemia, unspecified; B96.20 Unspecified Escherichia coli [E. coli] as the cause of diseases classified elsewhere; E11.22 Type 2 diabetes mellitus with diabetic chronic kidney disease; E03.9 Hypothyroidism, unspecified; I12.9 Hypertensive chronic kidney disease with stage 1 through stage 4 chronic kidney disease, or unspecified chronic kidney disease; S70.00XA Contusion of unspecified hip, initial encounter; I70.1 Atherosclerosis of renal artery; J44.89 Other specified chronic obstructive pulmonary disease; Z79.4 Long term (current) use of insulin; Z79.51 Long term (current) use of inhaled steroids; Z91.81 History of falling; Z79.84 Long term (current) use of oral hypoglycemic drugs; W18.39XA Other fall on same level, initial encounter; Y93.89 Activity, other specified; Y92.89 Other specified places as the place of occurrence of the external cause; Y99.8 Other external cause status; Z88.0 Allergy status to penicillin; Z82.49 Family history of ischemic heart disease and other diseases of the circulatory system; Z83.6 Family history of other diseases of the respiratory system; Z80.8 Family history of malignant neoplasm of other organs or systems
CPT/HCPCS: 36410; 36415; 71045; 76937; 80048; 80053; 80061; 81001; 82570; 82728; 82948; 83036; 83540; 83550; 83735; 83880; 83930; 83935; 84100; 84156; 84295; 84300; 84484; 84540; 85025; 85610; 87077; 87081; 87088; 87186; 87207; 93306; 96360; 97116; 97161; 97530; 99285; C1751; G0378; J0696; J1644; J1756; J2405; J7030; J7050; J8597